=== PATIENT | male | born 1960 | race Caucasian/White ===

== ENCOUNTER 2020-11-08 10:22 | Outpatient (REF) | payer OTHER, SELFPAY ==
[2020-11-08 11:20] LABS: MANUAL DIFF FLAG NO
[2020-11-08 11:31] LABS: Basophils Percent Auto 0.4 % (0-2); Eosinophils Absolute Auto 0.1 X10*3/uL (0.0-0.4); Eosinophils Percent Auto 1.9 % (0-4); Hematocrit 45.6 % (42-52); Hemoglobin 15.1 g/dl (14.0-18.0); Imm Gran Abs Auto 0.01 X10*3/uL (0.00-0.03); Imm Gran Pct Auto 0.2 % (0.0-0.4); Lymphocytes Absolute Auto 1.8 X10*3/uL (1.2-4.9); Lymphocytes Percent Auto 37.2 % (20-40); Mean Corpuscular HGB Conc 33.1 g/dl (31.0-36.0); Mean Corpuscular Hemoglobin 30.3 pg (27.0-33.0); Mean Corpuscular Volume 91.4 fL (80-98); Mean Platelet Volume 10.2 fL (9.4-12.4); Monocytes Absolute Auto 0.4 X10*3/uL (0.1-1.2); Monocytes Percent Auto 7.4 % (2-11); Neutrophils Absolute Auto 2.5 X10*3/uL (2.0-8.3); Neutrophils Percent Auto 52.9 % (45-73); Platelet Count 229 X10*3/uL (160-400); Red Blood Count 4.99 X10*6/uL (4.60-5.80); Red Cell Distribution Width 12.3 % (11.0-16.0); White Blood Count 4.7 X10*3/uL (4.8-10.8)
[2020-11-08 11:54] LABS: Alanine Aminotransferase 33 U/L (0-40); Albumin Level 4.4 g/dL (3.5-5.0); Alkaline Phosphatase 39 U/L (39-117); Anion Gap 11 (12-20); Aspartate Amino Transferase 24 U/L (5-37); Bilirubin Total 0.8 mg/dL (0.0-1.0); Blood Urea Nitrogen 16 mg/dL (9-16); Calcium 8.8 mg/dL (8.4-10.2); Carbon Dioxide 29 mmol/L (22-29); Chloride 106 mmol/L (96-108); Cholesterol 191 mg/dL; Estimated Glomerular Filt Rate > 60; Glucose Fasting 104 mg/dL (60-99); HDL Cholesterol 61 mg/dL; LDL Cholesterol Calculated 115 mg/dl; Potassium 5.2 mmol/l (3.3-5.1); Sodium 141 mmol/L (135-145); Triglycerides 79 mg/dL
[2020-11-08 12:07] LABS: Glucose Urine UA NEG (NEG); Leukocyte Esterase Urine NEG (NEG); Nitrite Urine NEG (NEG); PH 5.5 (5.0-8.0); Specific Gravity - Urine >= 1.030 (1.005-1.025); Urine Blood 1+ (NEG); Urine Ketones NEG (NEG); Urine Protein NEG (NEG-TRACE)
[2020-11-08 12:10] LABS: Appearance Urine HAZY; Color Urine YELLOW
[2020-11-08 12:16] LABS: Prostate Specific Antigen Scr 2.61 ng/mL (<0.05-4.0)
[2020-11-08 12:32] LABS: Mucus Urine TRACE /LPF; Squamous Epithelial Cell Urine TRACE /LPF; WBC Urine 0-2 /HPF (0-4)
== END 2020-11-08 10:23 | disposition home or self-care (01) ==
LOC: HO.HMGCLDS 10:22
PROVIDERS: PCP Internal Medicine; Visit Provider Internal Medicine
DX: E78.00 Pure hypercholesterolemia, unspecified (principal); Z00.00 Encounter for general adult medical examination without abnormal findings
CPT/HCPCS: 36415; 80053; 80061; 81001; 81003; 84153; 85025

== ENCOUNTER 2021-05-08 08:15 | Day surgery (SDC) | payer OTHER, SELFPAY ==
--- NOTE | 2021-05-07 13:10 | HO.ANESPROP2 ---
Documented by User: Yeni Ulrich 05/07/21 13:12 HPI - Anesthesia Eval Consult details Narrative: 61yo M for Upper Endoscopy and Colonoscopy [facility] Past Medical History Medical History Barretts esophagus GERD (gastroesophageal reflux disease) High cholesterol Surgical History Surgical History H/O colonoscopy (~2010) H/O esophagogastroduodenoscopy (~2015) H/O shoulder surgery H/O vasectomy Social History Social History Patient Tobacco Use Status: Former Tobacco user Use of substances other than those prescribed or required for medical reasons: No Are you DNR?: No Advance Directives: No Advance Directives Information Provided: No Meds Allergies Allergy/AdvReac Type Severity Reaction Status Date / Time meperidine [MEPERIDINE] Allergy Intermediate ITCHING Verified 05/08/21 08:57 Penicillins Allergy Mild UNKNOWN Verified 05/08/21 08:57 Exam Exam Date and Time: May 07, 2021 131 Assessment and Plan Assessment Anesthesia Assessment: Chart Reviewed Documented by User: Cait Cao 05/08/21 09:54 [facility] Past Medical History Medical History Barretts esophagus GERD (gastroesophageal reflux disease) High cholesterol Family History Family history of problems with anesthesia: No Surgical History Surgical History H/O colonoscopy (~2010) H/O esophagogastroduodenoscopy (~2015) H/O shoulder surgery H/O vasectomy History of Problems with Anesthesia: No Social History Social History Patient Tobacco Use Status: Former Tobacco user Use of substances other than those prescribed or required for medical reasons: No Are you DNR?: No Advance Directives: No Advance Directives Information Provided: No Meds Allergies Allergy/AdvReac Type Severity Reaction Status Date / Time meperidine [MEPERIDINE] Allergy Intermediate ITCHING Verified 05/08/21 08:57 Penicillins Allergy Mild UNKNOWN Verified 05/08/21 08:57 Exam Height,Weight and Vital Signs: Vital Signs Temp Pulse Resp BP Pulse Ox 05/08/21 08:47 97.5 F 54 16 147/76 H 97 Airway Mallampati Class: II TM Dist: >3cm Neck ROM: Full Loose/Missing/Broken Teeth: Yes (Back left) Heart: RRR Lungs: CTAB Assessment and Plan Assessment Anesthesia Assessment: Anesthesia Plan Discussed and Chart Reviewed Final Anesthetic Review NPO: Yes ASA Class: II Final Preanesthetic Review: No Changes in Pt Med Stat, Meds/Allgs Chart Reviewed, Consent Obtained/Reviewed and Anes Risks/Benef Reviewed Patient Risk: Low Procedure Risk: Low Assessment/Block/Sedation in SS: Assess/Block/Sedation-SS Anesthetic Plan Anesthetic Plan: MAC: Disposition: Standard PACU
[2021-05-08 08:47] VITALS: BP 147/76; PULSE 54; RESP 16; TEMP 36.4; O2SAT 97; BMI 28.3
[2021-05-08] MEDS: Lactated Ringers 1,000 ML 100 ML IVCONT (08:56)
--- NOTE | 2021-05-08 09:29 | P.HPSUR_ITS ---
Pre-Procedural Eval Section A The patient is an INPATIENT: No Changes since office visit: No Cold of Flu in the past 2 weeks, No New Medical Problems, No Changes in Medication and No Patient answered all questions The History & Physical has been completed within 30 days and I have reviewed it.: Yes Section B Chief Complaint: screening,ulcer Details of Present Illness: see h&p no changes Relevant Family History (Specify if Yes): No Relevant Social History: None Present Medications: see Short Stay Collaborative assessment Medical History: No relevant PMH History of Previous Operations: No relevant previous surgery Allergies: Allergies Allergy/AdvReac Type Severity Reaction Status Date / Time meperidine [MEPERIDINE] Allergy Intermediate ITCHING Verified 05/08/21 08:57 Penicillins Allergy Mild UNKNOWN Verified 05/08/21 08:57 Review of Systems Sugical H&P ROS: Negative: Constitution, Cardiovascular, Respiratory, Neurological, Psychiatric, Hem-Onc, Allergic/Immunologic, Gastrointestinal, Genitourinary, Musculoskeletal, Integumentary, Endocrine and Eyes/Ear s/Nose/Throat Exam Surgical H&P Exam: Normal: HEENT, Normal: Heart, Normal: Lungs, Normal: Extremities, Normal: Abdomen, Normal: Skin and Normal: Neurological Plan Diagnosis/Plan: Unchanged I have reviewed the history and physical and performed a pertinent physical examination on my patient. No changes have occurred unless specified.
--- NOTE | 2021-05-08 10:08 | PM.OP ---
Brief Operative Note Date of Service: 05/08/21 Pre-op diagnosis: barretts esophagus,screening Post-op diagnosis: same (colon polyp) Procedure: EGD, colonoscopy Surgeon: Cameron Robbins Anesthesia: MAC Was an Staff Physician used for this Procedure?: No Estimated blood loss (mL): 5 Pathology: other (bxs 42 cm, polyp 25 cm) Condition: stable Disposition: PACU
[2021-05-08 10:10] VITALS: BP 108/59; PULSE 42; RESP 16; TEMP 36.1; O2SAT 98
[2021-05-08 10:25] VITALS: BP 118/65; PULSE 50; RESP 17; TEMP 36.1; O2SAT 100
--- NOTE | 2021-05-11 10:56 | OP_ITS ---
SURGEON: Cameron Robbins MD INDICATIONS: 1. Montes De Oca's esophagus. 2. Colon cancer screening. PREOPERATIVE DIAGNOSIS: POSTOPERATIVE DIAGNOSIS: PROCEDURE PERFORMED: 1. Upper endoscopy with biopsy. 2. Colonoscopy to the terminal ileum with biopsy. ESTIMATED BLOOD LOSS: COMPLICATIONS: ANESTHESIA: ASSISTANTS: SPECIMENS: MEDICATIONS: Monitored anesthesia care. DESCRIPTION OF PROCEDURE: History and physical performed. The risks and benefits of the procedure were explained to the patient. Informed consent was obtained. The patient was placed in the left lateral decubitus position. The Olympus video gastroscope was introduced into the esophagus, stomach, and duodenum. Examination was performed and the scope was removed. He was repositioned for colonoscopy. Digital rectal exam was performed and was found to be normal. The Olympus pediatric video colonoscope was introduced into the rectum and advanced to the cecum without difficulty. The cecum was identified by transillumination, palpation, and identification of ileocecal valve. Examination was performed and the scope was removed. He tolerated both procedures well and was taken to recovery area in stable condition. FINDINGS: UPPER ENDOSCOPY: Esophagus: There was a 1 cm length of Montes De Oca's tissue just above the EG junction. Biopsies were obtained at 42 cm in all 4 quadrants. There was no ulcerated area or raised lesion. There was no esophagitis. Stomach: The stomach showed several benign-appearing polyps. The mucosa was otherwise normal. The polyps were less than 5 mm were located in the fundus consistent with fundic gland polyps. Duodenum: The bulb and second portion were normal. COLONOSCOPY: The terminal ileum was normal. The visualized colonic mucosa was normal. The quality of the prep was good. At 25 cm, was a less than 5 mm sessile polyp, which was removed with biopsy forceps. No other polyps were identified. Retroflexed examination was normal. IMPRESSION: 1. Montes De Oca's esophagus. 2. Colon polyp. RECOMMENDATION: Follow up the biopsy results. MD MANAS Hector/DOT / [id number]
== END 2021-05-08 11:00 ==
LOC: HO.SSS 08:16
PROVIDERS: PCP Internal Medicine; Visit Provider Internal Medicine Gastroenterology
PROC: (CPT 45380; principal; 2021-05-08 09:30)
DX: Z12.11 Encounter for screening for malignant neoplasm of colon (principal); K63.5 Polyp of colon; K22.70 Barrett's esophagus without dysplasia; K31.7 Polyp of stomach and duodenum; K21.9 Gastro-esophageal reflux disease without esophagitis; Z79.899 Other long term (current) drug therapy; Z88.0 Allergy status to penicillin; Z87.891 Personal history of nicotine dependence
CPT/HCPCS: 45380; 43239; 88305

== ENCOUNTER 2021-07-10 09:27 | Outpatient (REF) | payer OTHER, SELFPAY ==
--- NOTE | ~2021-07-10 | XR_ITS ---
EXAMINATION: XR HIP, RIGHT CLINICAL INFORMATION: Right hip pain. COMPARISON: CT abdomen/pelvis dated 10/01/2019. TECHNIQUE: 2 views of the right hip. FINDINGS: Mild right hip joint space narrowing with marginal osteophytes. Mild subchondral cystic change. No acute fracture or dislocation. Phleboliths within the pelvis. XR/XR hip RT min 2V IMPRESSION: [id number] right hip osteoarthritis, not significantly changed.
== END 2021-07-10 09:28 | disposition home or self-care (01) ==
LOC: HO.XRAY 09:27
PROVIDERS: PCP Internal Medicine; Visit Provider Internal Medicine
DX: M25.551 Pain in right hip (principal)
CPT/HCPCS: 73502

== ENCOUNTER 2021-08-08 12:14 | Outpatient (REF) | payer OTHER, SELFPAY | END 2021-08-08 12:15 | disposition home or self-care (01) | LOC: HO.HOSX 12:14 | PROVIDERS: Visit Provider Physician Assistant | DX: Z13.89 Encounter for screening for other disorder (principal) ==

== ENCOUNTER → 2021-08-22 13:54 | Outpatient (BNVA) | payer OTHER, SELFPAY | PROVIDERS: Visit Provider Physician Assistant ==

== ENCOUNTER 2021-08-27 13:24 | Outpatient (REF) | payer OTHER, SELFPAY ==
--- NOTE | ~2021-08-27 | FL_ITS ---
EXAMINATION: XR ARTHROGRAM HIP, RIGHT CLINICAL INFORMATION: Unilateral primary osteoarthritis. COMPARISON: None TECHNIQUE: Following explaining right hip arthrogram procedure, benefits and risk, a written consent was obtained. Patient was placed supine on fluoroscopy table and anterior aspect of right hip joint was cleaned and draped in the usual sterile manner. 1% lidocaine was administered at puncture site. A 22-gauge spinal needle was then advanced from the skin to the lateral border of the head and neck femoral junction and 2 mL of nonionic contrast was injected. A single image was obtained. Subsequently, 5 mL of 1% lidocaine, 3 mL of 0.25% Marcaine, and 40 mg/1 mL of dexamethasone was injected as 9 mL cocktail and needle withdrawn. Complete hemostasis achieved at puncture site. Simple Band-Aid applied postprocedure. FINDINGS: There are no fractures or dislocations. No joint effusion is identified. No bone, joint or soft tissue abnormality is demonstrated. Successful fluoroscopy-guided right hip steroid injection performed. FLUOROSCOPY TIME: 0.9 minutes DOSE AREA PRODUCT: 14.405 uGy-m2 (microgray-meter squared) FL/FL arthrogram hip RT IMPRESSION: Successful fluoroscopy-guided right hip steroid injection performed without immediate complications.
[2021-08-27] MEDS: Lidocaine HCl 1 % 20 ML VIAL 5 ML SUBCUT (15:24)
[2021-08-27] MEDS: methylPREDNISolone acetate 80 MG VIAL INTRAARTIC (15:29)
[2021-08-27] MEDS: iohexoL 300 MG/ML 50 ML INFUS..BTL INTRAARTIC (15:36)
== END 2021-08-27 13:25 | disposition home or self-care (01) ==
LOC: HO.XRAY 13:24
PROVIDERS: PCP Internal Medicine; Visit Provider Physician Assistant
DX: M16.11 Unilateral primary osteoarthritis, right hip (principal)
CPT/HCPCS: 27093; 73525; J1040; Q9967

== ENCOUNTER 2022-10-08 09:08 | Outpatient (REF) | payer OTHER, SELFPAY ==
[2022-10-08 11:37] LABS: MANUAL DIFF FLAG NO
[2022-10-08 11:43] LABS: Basophils Percent Auto 0.7 % (0-2); Eosinophils Absolute Auto 0.1 X10*3/uL (0.0-0.4); Eosinophils Percent Auto 1.5 % (0-4); Hematocrit 47.2 % (42.0-52.0); Hemoglobin 15.5 g/dl (14.0-18.0); Imm Gran Abs Auto 0.01 X10*3/uL (0.00-0.03); Imm Gran Pct Auto 0.2 % (0.0-0.4); Lymphocytes Absolute Auto 1.5 X10*3/uL (1.2-4.9); Lymphocytes Percent Auto 36.3 % (20-40); Mean Corpuscular HGB Conc 32.8 g/dl (31.0-36.0); Mean Corpuscular Hemoglobin 30.3 pg (27.0-33.0); Mean Corpuscular Volume 92.2 fL (80.0-98.0); Monocytes Absolute Auto 0.4 X10*3/uL (0.1-1.2); Monocytes Percent Auto 9.7 % (2-11); Neutrophils Absolute Auto 2.1 x10*3/uL (2.0-8.3); Neutrophils Percent Auto 51.6 % (45-73); Platelet Count 231 X10*3/uL (160-400); Red Blood Count 5.12 X10*6/uL (4.60-5.80); Red Cell Distribution Width 12.3 % (11.0-16.0); White Blood Count 4.1 X10*3/uL (4.8-10.8)
[2022-10-08 11:56] LABS: Alanine Aminotransferase 23 U/L (0-40); Albumin Level 4.5 g/dL (3.5-5.0); Alkaline Phosphatase 34 U/L (39-117); Anion Gap 13 (12-20); Aspartate Amino Transferase 20 U/L (5-37); Bilirubin Total 0.7 mg/dL (0.0-1.0); Blood Urea Nitrogen 16 mg/dL (9-16); Calcium 9.5 mg/dL (8.4-10.2); Carbon Dioxide 28 mmol/L (22-29); Chloride 106 mmol/L (96-108); Cholesterol 225 mg/dL; Estimated Glomerular Filt Rate > 60; Glucose Fasting 120 mg/dL (60-99); HDL Cholesterol 66 mg/dL; LDL Cholesterol Calculated 138 mg/dl; Sodium 142 mmol/L (135-145); Total Protein 7.4 g/dL (6.5-8.0); Triglycerides 106 mg/dL
[2022-10-08 12:18] LABS: Prostate Specific Antigen 2.73 ng/mL (<0.05-4.0)
== END 2022-10-08 09:09 | disposition home or self-care (01) ==
LOC: HO.HMGCLDS 09:08
PROVIDERS: PCP Internal Medicine; Visit Provider Internal Medicine
DX: Z00.00 Encounter for general adult medical examination without abnormal findings (principal); Z12.5 Encounter for screening for malignant neoplasm of prostate
CPT/HCPCS: 36415; 80053; 80061; 84153; 85025

== ENCOUNTER 2024-04-05 16:15 | Outpatient (REF) | payer OTHER, SELFPAY ==
--- NOTE | ~2024-04-05 | XR_ITS ---
EXAMINATION: XR CHEST CLINICAL INFORMATION: Cough. COMPARISON: Chest radiograph dated 02/04/2013. TECHNIQUE: 2 views of the chest were obtained. FINDINGS: Heart size is normal. The lungs are clear. No pleural effusion or pneumothorax. No acute osseous abnormality. XR/XR chest 2V IMPRESSION: No acute cardiopulmonary disease.
== END 2024-04-05 16:16 | disposition home or self-care (01) ==
LOC: HO.XRAY 16:15
PROVIDERS: PCP Internal Medicine; Visit Provider Internal Medicine
DX: R05.9 Cough, unspecified (principal)
CPT/HCPCS: 71046

== ENCOUNTER 2024-04-06 09:24 | Outpatient (REF) | payer OTHER, SELFPAY ==
[2024-04-06 13:16] LABS: MANUAL DIFF FLAG NO
[2024-04-06 13:23] LABS: Basophils Percent Auto 0.7 % (0-2); Eosinophils Absolute Auto 0.1 X10*3/uL (0.0-0.4); Eosinophils Percent Auto 1.4 % (0-4); Hematocrit 46.5 % (42.0-52.0); Hemoglobin 15.4 g/dl (14.0-18.0); Imm Gran Abs Auto 0.02 X10*3/uL (0.00-0.03); Imm Gran Pct Auto 0.4 % (0.0-0.4); Lymphocytes Absolute Auto 1.7 X10*3/uL (1.2-4.9); Lymphocytes Percent Auto 29.8 % (20-40); Mean Corpuscular HGB Conc 33.1 g/dl (31.0-36.0); Mean Corpuscular Hemoglobin 31.3 pg (27.0-33.0); Mean Corpuscular Volume 94.5 fL (80.0-98.0); Mean Platelet Volume 9.9 fL (9.4-12.4); Monocytes Absolute Auto 0.4 X10*3/uL (0.1-1.2); Monocytes Percent Auto 6.7 % (2-11); Neutrophils Absolute Auto 3.5 x10*3/uL (2.0-8.3); Platelet Count 268 X10*3/uL (160-400); Red Blood Count 4.92 X10*6/uL (4.60-5.80); Red Cell Distribution Width 12.5 % (11.0-16.0); White Blood Count 5.7 X10*3/uL (4.8-10.8)
[2024-04-06 14:32] LABS: Folate 7.4 ng/mL (> or = 4.0); Prostate Specific Antigen 3.93 ng/mL (<0.05-4.0); Vitamin B12 854 pg/mL (200-900)
[2024-04-06 20:16] LABS: Alanine Aminotransferase 49 U/L (0-40); Albumin Level 4.2 g/dL (3.5-5.0); Alkaline Phosphatase 40 U/L (39-117); Anion Gap 16 (12-20); Aspartate Amino Transferase 32 U/L (5-37); Bilirubin Total 0.6 mg/dL (0.0-1.0); Blood Urea Nitrogen 13 mg/dL (9-16); Calcium 9.3 mg/dL (8.4-10.2); Carbon Dioxide 24 mmol/L (22-29); Chloride 108 mmol/L (96-108); Cholesterol 190 mg/dL (<200); Estimated Glomerular Filt Rate > 60; Glucose Fasting 103 mg/dL (60-99); HDL Cholesterol 59 mg/dL (>40); LDL Cholesterol Calculated 109 mg/dL (<100); Potassium 4.8 mmol/L (3.3-5.1); Sodium 143 mmol/L (135-145); Total Protein 7.3 g/dL (6.5-8.0); Triglycerides 110 mg/dL (<150)
[2024-04-06 20:32] LABS: Free T4 (Free Thyroxine) 0.87 ng/dL (0.71-1.85); Thyroid Stimulating Hormone 1.37 uIU/mL (0.32-4.0)
== END 2024-04-06 09:25 | disposition home or self-care (01) ==
LOC: HO.HMGCLDS 09:24
PROVIDERS: PCP Internal Medicine; Visit Provider Internal Medicine
DX: E78.00 Pure hypercholesterolemia, unspecified (principal); K21.9 Gastro-esophageal reflux disease without esophagitis; N40.0 Benign prostatic hyperplasia without lower urinary tract symptoms; R35.1 Nocturia; Z12.5 Encounter for screening for malignant neoplasm of prostate
CPT/HCPCS: 36415; 80053; 80061; 82607; 82746; 84153; 84439; 84443; 85025